=== PATIENT | female | born 1955 | race Caucasian/White ===

== ENCOUNTER 2020-01-17 18:49 | Outpatient (CLI) | payer MEDICARE, OTHER, SELFPAY ==
--- NOTE | ~2020-01-17 | XR_ITS ---
EXAMINATION: XR shoulder LT min 2V, XR shoulder RT min 2V DATE: 01/17/2020 19:17 INDICATION: Bilateral shoulder pain TECHNIQUE: 1. AP internally and externally rotated, AP oblique externally rotated and axillary views of the left shoulder were obtained. 2. AP internally and externally rotated, AP oblique externally rotated and axillary views of the righ t shoulder were obtained. COMPARISON: None FINDINGS: Normal alignment at both shoulders. No fracture. Bilateral mild glenohumeral and acromioclavicular os teoarthritis. Lower cervical facet osteoarthritis, severe on the left and mild to moderate on the rig ht. Visualized portions of the lungs are clear. 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 Reviewed, dictated and finalized at location A. IMPRESSION: Mild polyarticular osteoarthritis at the bilateral glenohumeral and acromioclav icular joints.
== END 2020-01-17 18:50 | disposition home or self-care (01) ==
PROVIDERS: PCP Family Medicine; Visit Provider Physician Assistant
DX: M19.011 Primary osteoarthritis, right shoulder (principal); M19.012 Primary osteoarthritis, left shoulder
CPT/HCPCS: 73030

== ENCOUNTER → 2020-06-11 11:43 | Outpatient (CLI) | payer MEDICARE, OTHER, SELFPAY ==
--- NOTE | ~2020-06-11 | MM_ITS ---
EXAMINATION: MM screening [facility] BI w mikel HISTORY: Screening mammogram TECHNIQUE: Craniocaudal and mediolateral oblique 3-D tomosynthesis images were obtained and synthetic 2-D images were generated. CAD analysis was submitted and interpreted. COMPARISON: 04/11/2019, 04/07/2018, 01/20/2017 BREAST PARENCHYMAL COMPOSITION: There are scattered areas of fibroglandular density. FINDINGS: There is no evidence of suspicious mass, calcification, or architectural distortion to sugg est malignancy in either breast. There has been no suspicious interval change. IMPRESSION: 1. No mammographic evidence of malignancy. 2. Recommend routine screening mammography in one year. BI-RADS Category 1: Negative Reviewed, dictated and finalized at location A. RINARIAN ASSISTANT
== END ==
PROVIDERS: PCP Family Medicine; Visit Provider Student in an Organized Health Care Education/Training Program
DX: Z12.31 Encounter for screening mammogram for malignant neoplasm of breast (principal)
CPT/HCPCS: 77063; 77067

== ENCOUNTER → 2021-06-05 13:26 | Outpatient (CLI) | payer MEDICARE, OTHER, SELFPAY ==
--- NOTE | ~2021-06-05 | DEXA_ITS ---
Bone Density Report Name: Latricia Medellin Age: 65 Sex: Female Ethnicity: White Date of : 1955 Indication: osteopenia; parental hip fracture; postmenopausal Referring Provider: ARACELISJUNE Study: Bone densitometry was performed. Exam Date: June 05, 2021 Accession number: [id number] Bone Density: Region BMD T-score Z-score Classification AP Spine (L1-L4) 1.006 -0.4 1.5 Normal Femoral Neck (Left) 0.624 -2.0 -0.4 Osteopenia Total Hip (Left) 0.738 -1.7 -0.4 Osteopenia Femoral Neck (Right) 0.583 -2.4 -0.8 Osteopenia Total Hip (Right) 0.708 -1.9 -0.6 Osteopenia Total Hip Mean 0.723 -1.8 -0.5 Osteopenia World Health Organization criteria for BMD impression classify patients as: Normal (T-score at or above -1.0), Osteopenia (T-score between -1.0 and -2.5), or Osteoporosis (T-score at or below -2.5). 10-year Fracture Risk(1): Major Osteoporotic Fracture 20% Hip Fracture 3.2% Reported Risk Factors: [place] (), Neck BMD=0.583, BMI=22.1, parental fracture (1) FRAX(R) Version 3.08. Fracture probability calculated for an untreated patient. Fracture probability may be lower if the patient has received treatment. Previous Exams: Region Exam Age BMD T-score BMD Change BMD Change Date g/cm2 vs Baseline vs Previous AP Spine(L1-L4) 06/05/2021 65 1.006 -0.4 0.045* 0.008 04/11/2019 63 0.999 -0.4 0.037* -0.011 01/20/2017 61 1.010 -0.3 0.048* 0.028* 01/15/2015 59 0.982 -0.6 0.020 -0.013 09/14/2012 56 0.994 -0.5 0.033* 0.002 09/13/2010 54 0.992 -0.5 0.031* -0.010 08/28/2008 52 1.003 -0.4 0.041* 0.041* 07/29/2006 50 0.962 -0.8 Total Hip(Left) 06/05/2021 65 0.738 -1.7 0.012 -0.025 04/11/2019 63 0.763 -1.5 0.037* 0.005 01/20/2017 61 0.758 -1.5 0.032* -0.022 01/15/2015 59 0.780 -1.3 0.054* -0.032* 09/14/2012 56 0.812 -1.1 0.085* 0.056* 09/13/2010 54 0.756 -1.5 0.029* 0.005 08/28/2008 52 0.750 -1.6 0.024 0.024 07/29/2006 50 0.726 -1.8 Total Hip(Right) 06/05/2021 65 0.708 -1.9 -0.005 -0.006 04/11/2019 63 0.714 -1.9 0.001 -0.011 01/20/2017 61 0.725 -1.8 0.011 -0.029* 01/15/2015 59 0.754 -1.5 0.040* -0.005 09/14/2012 56 0.759 -1.5 0.045* 0.002 09/13/2010 54 0.757 -1.5 0.043* 0.009
== END ==
PROVIDERS: PCP Internal Medicine; Visit Provider Internal Medicine
DX: Z78.0 Asymptomatic menopausal state (principal); M85.852 Other specified disorders of bone density and structure, left thigh; M85.851 Other specified disorders of bone density and structure, right thigh
CPT/HCPCS: 77080

== ENCOUNTER → 2022-06-30 13:54 | Outpatient (CLI) | payer MEDICARE, SELFPAY ==
--- NOTE | ~2022-06-30 | MM_ITS ---
EXAMINATION: MM screening [facility] BI w mikel HISTORY: Screening mammogram TECHNIQUE: Craniocaudal and mediolateral oblique 3-D tomosynthesis images were obtained and synthetic 2-D images were generated. CAD analysis was submitted and interpreted. COMPARISON: 06/11/2020, 04/11/2019, 04/07/2018 BREAST PARENCHYMAL COMPOSITION: The breasts are heterogeneously dense, which may obscure small masses . FINDINGS: No suspicious mass, calcification, or architectural distortion are identified in either jess ast to suggest malignancy. There has been no suspicious interval change. IMPRESSION: 1. No mammographic evidence of malignancy. 2. Recommend routine screening mammography in one year. BI-RADS Category 1: Negative Reviewed, dictated and finalized at location A. URING MACHINE OPERATOR
== END ==
PROVIDERS: PCP Internal Medicine; Visit Provider Internal Medicine
DX: Z12.31 Encounter for screening mammogram for malignant neoplasm of breast (principal)
CPT/HCPCS: 77063; 77067

== ENCOUNTER → 2023-04-02 15:15 | Outpatient (CLI) | payer MEDICARE, SELFPAY ==
--- NOTE | ~2023-04-02 | XR_ITS ---
EXAMINATION: XR cervical spine 4-5V DATE: 04/02/2023 15:39 INDICATION: Neck pain. TECHNIQUE: 4 views of cervical spine were obtained. COMPARISON: Cervical spine radiograph 01/04/2014 FINDINGS: There is 7 degrees levocurvature of cervical spine. Vertebral body heights are normal. Ther e is severely decreased disc height at C6-C7. There is multilevel facet joint osteoarthritis, severe on the left at C3-C4, C4-C5, and C5-C6 and severe bilaterally at C6-C7 and C7-T1. There is multilevel uncovertebral joint osteoarthritis, severe bilaterally at C5-C6 and C6-C7. There is mild central can al stenosis at C5-C6 and C6-C7. No prevertebral soft tissue swelling. IMPRESSION: 1. Severe cervical spondylosis. Reviewed, dictated and finalized at location E.
== END ==
PROVIDERS: PCP Internal Medicine; Visit Provider Internal Medicine
DX: M47.816 Spondylosis without myelopathy or radiculopathy, lumbar region (principal)
CPT/HCPCS: 72050

== ENCOUNTER 2023-12-08 13:15 | Outpatient (CLI) | payer MEDICARE, SELFPAY ==
--- NOTE | ~2023-12-08 | DEXA_ITS ---
Bone Density Report Name: JOSE VILLEDA Age: 68 Sex: Female Ethnicity: Sabiha Date of : 1955 Indication: osteopenia; monitoring treatment; parental hip fracture; postmenopausal Referring Provider: JUNE HSU Study: Bone densitometry was performed. Exam Date: December 08, 2023 Accession number: [id number] Bone Density: Region BMD T-score Z-score Classification AP Spine (L1-L4) 0.993 -0.5 1.6 Normal Femoral Neck (Left) 0.574 -2.5 -0.7 Osteoporosis Total Hip (Left) 0.710 -1.9 -0.5 Osteopenia Femoral Neck (Right) 0.577 -2.4 -0.7 Osteopenia Total Hip (Right) 0.717 -1.8 -0.4 Osteopenia Total Hip Mean 0.714 -1.9 -0.5 Osteopenia World Health Organization criteria for BMD impression classify patients as: Normal (T-score at or above -1.0), Osteopenia (T-score between -1.0 and -2.5), or Osteoporosis (T-score at or below -2.5). 10-year Fracture Risk: FRAX not reported because: Some T-score for Spine Total or Hip Total or Femoral Neck at or below -2.5 Treated for osteoporosis Previous Exams: Region Exam Age BMD T-score BMD Change BMD Change Date g/cm2 vs Baseline vs Previous AP Spine(L1-L4) 12/08/2023 68 0.993 -0.5 0.032* -0.013 06/05/2021 65 1.006 -0.4 0.045* 0.008 04/11/2019 63 0.999 -0.4 0.037* -0.011 01/20/2017 61 1.010 -0.3 0.048* 0.028* 01/15/2015 59 0.982 -0.6 0.020 -0.013 09/14/2012 56 0.994 -0.5 0.033* 0.002 09/13/2010 54 0.992 -0.5 0.031* -0.010 08/28/2008 52 1.003 -0.4 0.041* 0.041* 07/29/2006 50 0.962 -0.8 Total Hip(Left) 12/08/2023 68 0.710 -1.9 -0.016 -0.028* 06/05/2021 65 0.738 -1.7 0.012 -0.025 04/11/2019 63 0.763 -1.5 0.037* 0.005 01/20/2017 61 0.758 -1.5 0.032* -0.022 01/15/2015 59 0.780 -1.3 0.054* -0.032* 09/14/2012 56 0.812 -1.1 0.085* 0.056* 09/13/2010 54 0.756 -1.5 0.029* 0.005 08/28/2008 52 0.750 -1.6 0.024 0.024 07/29/2006 50 0.726 -1.8 Total Hip(Right) 12/08/2023 68 0.717 -1.8 0.004 0.009 06/05/2021 65 0.708 -1.9 -0.005 -0.006 04/11/2019 63 0.714 -1.9 0.001 -0.011 01/20/2017 61 0.725 -1.8 0.011 -0.029* 01/15/2015 59 0.754 -1.5 0.040* -0.005 09/14/2012 56 0.759 -1.5 0.045* 0.002 09/13/2010 54 0.757 -1.5 0.043
--- NOTE | ~2023-12-08 | MM_ITS ---
EXAMINATION: MM screening [facility] BI w mikel HISTORY: Screening mammogram TECHNIQUE: Craniocaudal and mediolateral oblique 3-D tomosynthesis images were obtained and synthetic 2-D images were generated. CAD analysis was submitted and interpreted. COMPARISON: 06/30/2022, 06/11/2020 bilateral screening mammogram examinations BREAST PARENCHYMAL COMPOSITION: There are scattered areas of fibroglandular density. FINDINGS: There is no evidence of suspicious mass, calcification, or architectural distortion to sugg est malignancy in either breast. There has been no suspicious interval change. IMPRESSION: 1. No mammographic evidence of malignancy. 2. Recommend routine screening mammography in one year. BI-RADS Category 1: Negative Reviewed, dictated and finalized at location B.
== END 2023-12-08 13:16 ==
PROVIDERS: PCP Internal Medicine; Visit Provider Internal Medicine
DX: Z12.31 Encounter for screening mammogram for malignant neoplasm of breast (principal); M85.88 Other specified disorders of bone density and structure, other site
CPT/HCPCS: 77063; 77067; 77080

== ENCOUNTER 2024-11-11 08:45 | Outpatient (CLI) | payer MEDICARE, SELFPAY ==
--- OUTSIDE RECORDS SUMMARY | 2024-11-11 08:57 | XMS_ITS | Referral Summary ---
Author Organization [facility] Address [address] [place] [phone] Care Team Providers Care Reproductive Endocrinologist Name Role Phone Elizabeth Landis MD Primary Care Provider [phone] Allergies No known active allergies Medications glucosamine-jade droitin 500-400 mg tablet Take by mouth daily Active multivitamin-iro n-folic acid 18-400 mg-mcg tablet Take by mouth daily Active fish oil-dha-epa 1,200-144-216 mg capsule Take by mouth Active Active Problems No known active problems Immunizations Immunization Administration Dates Next Due Influenza, Quadrivalent, Hig h Dose, Preservative Free, Intrr 06/19/2020 Influenza, Quadrivalent, Rec ombinant, Egg Free, Preservative Free, Intramuscular 05/30/2019 Influenza, Quadrivalent, Spl it, Preservative Free, Intramuscular 06/16/2018,08/24/2017 Pneumococcal Conjugate PCV 13 11/28/2020 Pneumococcal Conjugate Pcv20 11/12/2021 ZOSTER LIVE 12/10/2014 ZOSTER Recombinant 07/05/2021,12/17/2020 Social History Tobacco Use Types Packs/Day Years Used Date Smoking Tobacco: Former Tobacco Cessation:Counseling Given: Not Answered Personal Safety Answer Date Recorded Getting School Help Needed Not on file 08/05 Comments Unknown Sex and Gender Information Value Date Recorded Sex Assigned at Not on file Legal Sex Female 10:34 AM THERAPY ASSISTANT Gender Identity Female 03/14/2022 8:32 AM CDT Sexual Orientation Not on file Last Filed Vital Signs Vital Sign Reading Time Taken Comments Blood Pressure 119/74 03/14/2022 8:42 AM CDT Pulse 77 03/14/2022 8:42 AM CDT Temperature 36.9 C (98.5 F) 03/14/2022 8:42 AM CDT Respiratory Rate - - Oxygen Saturation 98% 03/14/2022 8:42 AM CDT Inhaled Oxygen Concentration - - Weight 57.2 kg (126 lb) 03/14/2022 8:42 AM CDT Height 160 cm (5' 3 ) 03/14/2022 8:42 AM CDT Body Mass Index 22.32 03/14/2022 8:42 AM CDT Plan of Treatment Not on file Insurance [facility] Care Teams Reproductive Endocrinologist Relationship Specialty Start Date End Date Elizabeth Landis MD [employer] [place] [id number] PCP - General Internal Medicine 06/11/21
--- OUTSIDE RECORDS SUMMARY | 2024-11-11 08:57 | XMS_ITS | Clinical Summary ---
Author Organization [facility] Address [address] [place] [id number] Care Team Providers Care Cook Ship Name Role Phone Elizabeth Landis MD Primary Care Provider [phone] Allergies No known active allergies Medications glucosamine-jade [...] 11/12/2021 ZOSTER LIVE 12/10/2014 ZOSTER Recombinant 07/05/2021,12/17/2020 Surgical History Surgery Date Site/Laterality Comments BLEPHAROPTOSIS REPAIR Bilateral OTHER SURGICAL HISTORY Left LEFT UPPER EYELID PTOSIS REVISION Medical History Medical History Date Comments Hepatitis C Arthritis Ptosis Family History Medical History Relation Name Comments Blindness Father Diabetes Father Hypertension Mother Relation Name Status Comments Father Mother Social History Tobacco Use Types Packs/Day Years Used Date Smoking Tobacco: Former Tobacco Cessation:Counseling Given: Not Answered Personal Safety Answer Date Recorded Getting School Help Needed Not on file 08/05 Comments Unknown Sex and Gender Information Value Date Recorded Sex Assigned at Not on file Legal Sex Female 10:34 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 Gender Identity Female 03/14/2022 8:32 AM CDT Sexual Orientation Not on file Obstetrics History Last Filed Vital Signs Vital Sign Reading [...] 03/14/2022 8:42 AM CDT Plan of Treatment Health Maintenance Due Date Last Done Comments Breast Cancer Screening-Mammogram 1955 Colon Cancer Screening-Colonoscopy 1955 Depression Screening 1955 Fall Risk Assessment 1955 Osteoporosis Screening-Bone Density Scan 1955 DTaP/Tdap/Td Vaccine (1 - Tdap) 1965 Hepatitis B Screening 1972 Well Visit 65+ 11/07/2019 Covid-19 Vaccine (5 - 2023-2 5 season) 2024 12/26/2021, 07/21/2021, 10/23/2020, Additional history exists Influenza Vaccine (Season Ended) 2025 06/19/2020, 05/30/2019, 06/16/2018, Additional history exists Hepatitis C Screening Completed 06/11/2021 Zoster Vaccine Completed 07/05/2021, 12/01, 12/10/2014 Pneumococcal vaccine 65+ Completed 11/12/2021, 11/02 Insurance AETNA MEDICARE AET[employer] MCR ADV REF Care Teams Cook Ship Relationship Specialty Start Date End Date Elizabeth Landis MD [employer] [place] [id number] PCP - General Internal Medicine 06/11/21
--- OUTSIDE RECORDS SUMMARY | 2024-11-11 08:57 | XMS_ITS | Clinical Summary ---
Author Organization [facility] Address [address] [place] [phone] Phone Care Team Providers Care Steel Die Press Set Up Operator Name Role Phone Ankit Walls MD Primary Care Provider [phone] Social History Tobacco Use Types Packs/Day Years Used Date Smoking Tobacco: Never Assessed Comments Unknown Sex and Gender Information Value Date Recorded Sex Assigned at Not on file Legal Sex Female 11:44 AM CHOCOLATE COATER Gender Identity Not on file Sexual Orientation Not on file Plan of Treatment Health Maintenance Due Date Last Done Comments DEXA Bone Density 1955 Hepatitis C Virus (HCV) Screening 1955 TdaP Immunization 1955 Colonoscopy 11/07/1999 Colorectal Cancer Screening 11/07/1999 Cologuard 2004 Immunochemical Fecal Occult Blood 2004 Mammogram 2004 Pneumococcal Immunization (5 0+ years) (1 of 1 - PCV) 2004 Zoster Immunization (1 of 2) 2004 Influenza Immunization (#1) 2024 SARS-COV-2 Immunization ( season) 2024 Respiratory Syncytial Virus (RSV) Immunization (Adult) (1 - 1-dose 75+ series) 2029 Hepatitis B Immunization Aged Out No longer eligible based on patient's age to complete this topic Meningococcal Immunization (ACWY) Aged Out No longer eligible based on patient's age to complete this topic Rotavirus Immunization Aged Out No lo nger eligible based on patient's age to complete this topic Insurance [facility] OAP Care Teams Steel Die Press Set Up Operator Relationship Specialty Start Date End Date Ankit Walls MD [address] [place] [address] PCP - General Internal Medicine 08/06/18
--- OUTSIDE RECORDS SUMMARY | 2024-11-11 08:57 | XMS_ITS | Clinical Summary ---
Author Organization [facility] Address [address] [place] [address] Care Team Providers Care Automation Technologist Name Role Phone Ruth Vasquez DO Primary Care Provider [phone] [facility] [employer],non-owned Affiliates and Associated Physician Practices is amultiple site organization consisting of ambulatory clinics and hospital sitesin [place], [place], [place] and [place]. This disclosure is being madepursuant to the Care Everywhere program and may not contain all information available regarding this patient. Last updated 18.[facility] [employer] Allergies No known active allergies Medications * Be aware that medications may not be up to date on this document. Alwaysverify current medications with the patient. Medication Sig Dispensed Refills Start Date End Date Status Multiple Vitamin (MULTIVITAMIN ADULT PO) Take by mouth once daily Active GLUCOSAMINE CHONDROITIN COMPLX PO Take by mouth once daily Active Selma-3 Fatty Acids (ODORLESS COATED FISH OIL PO) Take by mouth once daily Active Calcium-Vitamin D-Vitamin K (VIACTIV CALCIUM PLUS D PO) Take by mouth once daily Active Vitamin D-Vitamin K (K2 PLUS D3 PO) Take by mouth once daily Active Active Problems Problem Noted Date Diagnosed Date Ptosis of right eyelid 08/07/2022 Osteopenia 03/24/2022 Elevated liver enzymes 03/24/2022 Overview (09/15/2022): 2021 without identifiable cause, HCV RNA negative Chronic hepatitis C without hepatic coma 013 Overview (03/24/2022): SVR (cured) with solvadi and olysio in 201210/03/21 Fibroscan CAP 232, LSM 3.7 kPa Encounters Date Type Department Care Team Description 11/11/2024 Orders Only [facility] - [address] [place] [phone] Jareth Soto i, MD Chronic hepatitis C without hepatic coma (HCC) 11/08/2024 Telephone [facility] - [address] [facility], [place] [address] Jareth Soto i, MD LABS ONLY from Last 3 Months Immunizations Name Administration Dates Next Due INFLUENZA VACCINE, QUADR. (F LUZONE; FLULAVAL; FLUARIX; AFLURIA QUADRIVALENT; 6MO+), 0.5 ML (IIV4) 06/16/2018 Social History Tobacco Use Types Packs/Day Years Used Date Smoking Tobacco: Former Smokeless Tobacco: Never Tobacco Cessation:Counseling Given: Not Answered Alcohol Use Standard Drinks/Week Comments Yes 0 (1 standard drink = 0.6 oz pur e alcohol) 4-5 glasses of wine per week AUDIT-C Answer Date Recorded Q1: How often do you have a drink containing alcohol? 4 or more times a week 01/09/2023 Q2: How many drinks containi ng alcohol do you have on a typical day when you are drinking? 3 or 4 Q3: How often do you have si x or more drinks on one occasion? Never 01/09/2023 Sex and Gender Information Value Date Recorded Sex Assigned at Female 03/25/2022 8:30 AM CDT Gender Identity Female 03/25/2022 8:30 AM CDT Sexual Orientation Not on file Last Filed Vital Signs Vital Sign Reading Time Taken Comments Blood Pressure 143/76 06/08/2023 12:49 PM FILM LIBRARIAN Pulse 59 06/08/2023 12:49 PM FILM LIBRARIAN Temperature 36.4 C (97.5 F) 06/08/2023 12:40 PM FILM LIBRARIAN Respiratory Rate 16 06/08/2023 12:49 PM FILM LIBRARIAN Oxygen Saturation 99% 06/08/2023 12:49 PM FILM LIBRARIAN Inhaled Oxygen Concentration - - Weight 55.3 kg (122 lb) 06/08/2023 10:45 AM FILM LIBRARIAN Height 160 cm (5' 3 ) 06/08/2023 10:45 AM FILM LIBRARIAN Body Mass Index 21.61 06/08/2023 10:45 AM FILM LIBRARIAN Plan of Treatment Upcoming Encounters Date Type Department Care Team (Late st Contact Info) Description 01/16/2025 8:00 AM CDT Office Visit [facility] [address] [place] [address], [place] [address] Jareth Calle MD [address] [place] [address] [place] [address] Health Maintenance Due Date Last Done Comments BONE DENSITY TESTING 1955 COLOGUARD (AGES 45-75) - COLON CA SCREENING 1955 COLON MONITORING 1955 COLONOSCOPY - COLON CA SCREENING 1954 CT COLONOGRAPHY - COLON CA SCREENING 1955 Colorectal Cancer Screening 1955 FIT - COLON CA SCREENING 1955 FLEX SIG - COLON CA SCREENING 1955 LIPID TESTING 1955 MAMMOGRAM 1954 DTAP/TDAP/TD VACCINES (1 - Tdap) 1973 PNEUMOCOCCAL VACCINE 50+ (1 of 2 - PCV) 1973 ZOSTER VACCINE (1 of 2) 2004 HEPATITIS B VACCINE (1 of 3 - Risk 3-dose series) 2014 Respiratory Syncytial Virus (RSV) Vaccine Pt: or over 60 yrs (1 - Risk 60-74 years 1-dose series) 2014 COVID-19 VACCINE ( - season) 2024 DEPRESSION SCREENING 08/03/2024 MEDICARE AWV CALENDAR YEAR 2024 INFLUENZA VACCINE (Season Ended) 2025 06/18/2020, 05/30/2019, 06/16/2018, Additional history exists HEPATITIS C SCREENING Completed 11/11/2024 , 09/15/2022, 03/25/2022, Additional history exists HIB VACCINE Aged Out No longer eligi ble based on patient's age to complete this topic HPV VACCINE Aged Out No longer eligi ble based on patient's age to complete this topic MENINGOCOCCAL (Group B) VACCINE SHARED DECISION-MAKING Aged Out No longer eligible based on patient's age to complete this topic MENINGOCOCCAL GROUPS A/C/Y/W VACCINE Aged Out No longer eligible based on patient's age to complete this topic Goals Goal Patient Goal Type Associated Problems Recent Progress Patient-Stated? Author Medication Management General On track( 023 1:48 PM FILM LIBRARIAN) Bella Wallace, RN Note: Expected end date: ONGOING Interventions: Take all medications as prescribed Procedures Procedure Name Priority Date/Time Associated Diagnosis Comments HEPATITIS C GENOTYPE Routine 08/27/2021 1:25 PM FILM LIBRARIAN Chronic hepatitis C without hepatic coma from Last 3 Months or Most Recently Relevant to Health Maintenance Results * HEPATITIS C GENOTYPE (08/27/2021 1:25 PM FILM LIBRARIAN) Hepatitis C Virus Genotype LIPA NOT DETECTED [facility] Comment: Genotype not detected due to low or no viral load, mutations in viral genome at assay priming sites, presence of inhibitory substance, or other assay related factors. Viral load of >=300 IU/mL is required for testing. If this patient has a known concurrent viral load >=300 IU/mL contact client services for verification. The method used in this test is RT-PCR and reverse hybridization (Line Probe) of the 5' UTR and core region of the HCV genome. The analytical performance characteristics of this assay have been determined by [employer]. The modifications have not been cleared or approved by the FDA. This assay has been validated pursuant to the CLIA regulations and is used for clinical purposes. For additional information, please refer to http://education.[employer] /faq/HCVGenotyping (This link id being provided for informational/ educational purposes only.) Test Performed at: [facility] [address] [place] [address] MICHELLE VALDEZ MD,PHD,MARY Blood BLOOD SPECIMEN / Unknown 08/27/2021 1:25 PM FILM LIBRARIAN 08/27/2021 1:26 PM FILM LIBRARIAN Monse Ernandez FRESH [employer]ODS CLERK-DENTAL DETAIL REPRESENTATIVE LAB - [facility] ORDERABLES [facility] [address] [place] [address] from Last 3 Months or Most Recently Relevant to Health Maintenance Care Teams Automation Technologist Relationship Specialty Start Date End Date Ruth Vasquez DO [address] [place] [address] PCP - General Family Medicine 11/08/24
--- OUTSIDE RECORDS SUMMARY | 2024-11-11 08:57 | XMS_ITS | Encounter Summary ---
Author Organization [facility] Health Address [address] [facility] [place] [address] Care Team Providers Care Pediatric Medical Assistant Name Role Phone Ruth Vasquez DO Primary Care Provider [phone] Encounter Details Date Type Department Care Team (Late st Contact Info) Description 11/11/2024 Orders Only [facility] - [place] [address] [facility], [place] [address] Jareth Calle MD [address] [place] [address] [place] [address] Chronic hepatitis C without hepatic coma (HCC) Social History Tobacco Use Types Packs/Day Years Used Date Smoking Tobacco: Former Smokeless Tobacco: Never Alcohol Use Standard Drinks/Week Comments Yes 0 [...] AM CDT Sexual Orientation Not on file documented as of this encounter Plan of Treatment Upcoming Encounters Date Type Department Care Team (Late st Contact Info) Description 01/16/2025 8:00 AM CDT Office Visit [facility] - [place] [address] [facility] [place] [address] Jareth Calle MD [address] [place] [address] [place] [address] Scheduled Orders Name Type Priority Associated Diagnoses Orde r Schedule COMPREHENSIVE METABOLIC PANEL Lab Routine Chronic hepatitis C without hepatic coma (HCC) Ordered: 11/11/2024 CBC WITH DIFFERENTIAL Lab Routine Chronic hepatitis C without hepatic coma (HCC) Ordered: 11/11/2024 PT-INR Lab STAT Chronic hepatitis C without hepatic coma (HCC) Ordered: 11/11/2024 documented as of this encounter Goals Goal Patient Goal Type Associated Problems Recent Progress Patient-Stated? Author Medication Management General On track( 023 1:48 PM PROPERTY MANAGEMENT SPECIALIST) Bella Wallace, RN Note: Expected end date: ONGOING Interventions: Take all medications as prescribed documented as of this encounter Visit Diagnoses Diagnosis Chronic hepatitis C without hepatic coma (HCC)- Primary documented in this encounter Care Teams Pediatric Medical Assistant Relationship Specialty Start Date End Date Ruth Vasquez DO [address] [place] [address] PCP - General Family Medicine 11/08/24 documented as of this encounter
[2024-11-11 18:14] LABS: Hematocrit 42.3 % (37.0-47.0); Hemoglobin 13.7 g/dL (12.0-15.0); Mean Corpuscular HGB Conc 32.4 g/dl (32-36); Mean Corpuscular Hemoglobin 31.6 pg (26-34); Mean Corpuscular Volume 97.5 fl (80-100); Mean Platelet Volume 10.5 fl (7.4-10.4); Platelet Count Result 197 k/mm3 (150-375); Red Blood Count 4.34 M/mm3 (4.2-5.4); Red Cell Distribution Width 12.7 % (11.5-14.5); White Blood Count 5.3 K/mm3 (4.5-10.0)
[2024-11-11 18:29] LABS: Alanine Aminotransferase 16 U/L (6-35); Albumin Level 4.2 g/dL (3.5-5.1); Alkaline Phosphatase 57 U/L (38-126); Anion Gap 8 mmol/L (4-12); Aspartate Amino Transferase 28 U/L (14-36); Bilirubin,Total 0.6 mg/dL (0.2-1.3); Blood Urea Nitrogen 17 mg/dL (7-17); Calcium 9.1 mg/dL (8.4-10.2); Carbon Dioxide 28 mmol/L (22-30); Chloride 104 mmol/L (98-107); Cholesterol 149 mg/dL (0-200); Estimated Glomerular Filt Rate > 60; Glucose 91 mg/dL (65-110); HDL Direct 56 mg/dL; Potassium 4.4 mmol/L (3.4-5.0); Sodium 140 mmol/L (137-145); Triglycerides 52 mg/dL (<150)
[2024-11-11 18:42] LABS: LDL Cholesterol Direct 69 mg/dL
== END 2024-11-11 08:46 | disposition home or self-care (01) ==
LOC: ANHGOSHLAB 08:45
PROVIDERS: PCP Family Medicine; Visit Provider Family Medicine
DX: M85.80 Other specified disorders of bone density and structure, unspecified site (principal); G47.00 Insomnia, unspecified; Z13.220 Encounter for screening for lipoid disorders; Z79.899 Other long term (current) drug therapy
CPT/HCPCS: 36415; 80053; 80061; 84443; 85027

== ENCOUNTER 2024-12-08 13:39 | Outpatient (CLI) | payer MEDICARE, SELFPAY ==
--- OUTSIDE RECORDS SUMMARY | 2024-12-08 13:43 | XMS_ITS | Clinical Summary ---
Author Organization [facility] Address [address] [facility] [place] [address] Care Team Providers Care Summer Internship Name Role Phone Ruth Vasquez DO Primary Care Provider [phone] Source Comments [facility] Subject Company,non-owned Affiliates and Associated Physician Practices is amultiple site organization consisting of ambulatory clinics and hospital sitesin [place], [place], [place] and [place]. This disclosure is being madepursuant to the Care Everywhere program and may not contain all information available regarding this patient. Last updated 18.[facility] Subject Company Allergies No known active allergies Medications * Be aware that medications may not be up to date on this document. Alwaysverify current medications with the patient. Multiple Vitamin (MULTIVITAMIN ADULT PO) Take by mouth once daily Active GLUCOSAMINE CHONDROITIN COMPLX PO Take by mouth once daily Active [place]-3 Fatty Acids (ODORLESS COATED FISH OIL PO) [...] Department Care Team Description 11/11/2024 Orders Only [facility] - [address] [facility], [place] [phone] Jareth Soto i, MD Chronic hepatitis C without hepatic coma (HCC) 11/08/2024 Telephone [facility] - [address] [place] [phone] Jareth Soto i, MD LABS ONLY from Last 3 Months Immunizations Immunization Administration Dates Next Due INFLUENZA VACCINE, QUADR. [...] more drinks on one occasion? Never 01/09/2023 Comments Unknown Sex and Gender Information Value Date Recorded Sex Assigned at Female 03/25/2022 8:30 AM CDT Legal Sex Female 6:19 PM RUG CLEANING SUPERVISOR Gender Identity Female 03/25/2022 8:30 AM CDT Sexual Orientation Not on file Last Filed Vital Signs Vital Sign Reading Time Taken Comments Blood Pressure 143/76 06/08/2023 12:49 PM RUG CLEANING SUPERVISOR Pulse 59 06/08/2023 12:49 PM RUG CLEANING SUPERVISOR Temperature 36.4 C (97.5 F) 06/08/2023 12:40 PM RUG CLEANING SUPERVISOR Respiratory Rate 16 06/08/2023 12:49 PM RUG CLEANING SUPERVISOR Oxygen Saturation 99% 06/08/2023 12:49 PM RUG CLEANING SUPERVISOR Inhaled Oxygen Concentration - - Weight 55.3 kg (122 lb) 06/08/2023 10:45 AM RUG CLEANING SUPERVISOR Height 160 cm (5' 3 ) 06/08/2023 10:45 AM RUG CLEANING SUPERVISOR Body Mass Index 21.61 06/08/2023 10:45 AM RUG CLEANING SUPERVISOR Plan of Treatment Upcoming Encounters Date Type Department Care Team (Late st Contact Info) Description 01/16/2025 8:00 AM CDT Office Visit [facility] [facility], [place] [address] Jareth Calle MD [address] [place] [address] [place] [address] Health Maintenance Due Date Last Done Comments [...] 60-74 years 1-dose series) 2014 COVID-19 VACCINE (1 - season) 2024 DEPRESSION SCREENING 08/03/2024 MEDICARE [...] Management General On track( 023 1:48 PM RUG CLEANING SUPERVISOR) Bella Wallace, MARLYN Note: Expected end date: ONGOING Interventions: Take all medications as prescribed Procedures Procedure Name Priority Date/Time Associated Diagnosis Comments HEPATITIS C GENOTYPE Routine 08/27/2021 1:25 PM RUG CLEANING SUPERVISOR Chronic hepatitis C without hepatic coma from Last 3 Months or Most Recently Relevant to Health Maintenance Results * HEPATITIS C GENOTYPE (08/27/2021 1:25 PM RUG CLEANING SUPERVISOR) Hepatitis C Virus Genotype LIPA NOT DETECTED [...] of this assay have been determined by [employer]. The modifications have not been cleared or approved by the FDA. This assay has been validated pursuant to the CLIA regulations and is used for clinical purposes. For additional information, please refer to http://education.Sonos.GetSnippy /faq/HCVGenotyping (This link id being provided for informational/ educational purposes only.) Test Performed at: [email or web address] [address] [place] [address] MICHELLE VALDEZ MD,PHD,MARY Blood BLOOD SPECIMEN / Unknown 08/27/2021 1:25 PM RUG CLEANING SUPERVISOR 08/27/2021 1:26 PM RUG CLEANING SUPERVISOR Monse Ernandez MUD ENGINEER-PLATE PRINTER LAB - CHEMISTRY ORDE ADE Final Result [facility] [id number] [place] [address] from Last 3 Months or Most Recently Relevant to Health Maintenance Insurance [employer] MEDICARE ADV [employer] Care Teams Summer Internship Relationship Specialty Start Date End Date Ruth Vasquez DO [address] [place] [address] PCP - General Family Medicine 11/08/24
--- OUTSIDE RECORDS SUMMARY | 2024-12-08 13:43 | XMS_ITS | Clinical Summary ---
Author Organization 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
--- OUTSIDE RECORDS SUMMARY | 2024-12-08 13:43 | XMS_ITS | Clinical Summary ---
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
--- OUTSIDE RECORDS SUMMARY | 2024-12-08 13:43 | XMS_ITS | Referral Summary ---
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
[2024-12-08 19:46] LABS: Basophils Percent Auto 0.3 % (0.2-1.2); Eosinophils Percent Auto 0.5 % (0-4.4); Hematocrit 39.9 % (37.0-47.0); Hemoglobin 12.9 g/dL (12.0-15.0); Immature Granulocyte Absolute 0.02 K/mm3 (0.00-0.031); Immature Granulocyte Percent A 0.3 % (0-0.5); Lymphocytes Absolute Auto 2.36 K/mm3 (0.9-3.2); Lymphocytes Percent Auto 35.9 % (18.3-44.2); Mean Corpuscular HGB Conc 32.3 g/dl (32-36); Mean Corpuscular Hemoglobin 31.3 pg (26-34); Mean Corpuscular Volume 96.8 fl (80-100); Mean Platelet Volume 10.6 fl (7.4-10.4); Monocytes Absolute Auto 0.6 K/mm3 (0.1-0.6); Monocytes Percent Auto 9.4 % (2.6-8.5); Neutrophils Absolute Auto 3.5 K/mm3 (1.3-6.7); Neutrophils Percent Auto 53.6 % (45.5-73.1); Platelet Count Result 192 k/mm3 (150-375); Red Blood Count 4.12 M/mm3 (4.2-5.4); Red Cell Distribution Width 12.6 % (11.5-14.5); White Blood Count 6.6 K/mm3 (4.5-10.0)
[2024-12-08 19:58] LABS: INR 0.9; Prothrombin Time 12.9 Seconds (11.1-14.7)
[2024-12-08 20:28] LABS: Alanine Aminotransferase 15 U/L (6-35); Albumin Level 4.3 g/dL (3.5-5.1); Alkaline Phosphatase 77 U/L (38-126); Anion Gap 7 mmol/L (4-12); Aspartate Amino Transferase 26 U/L (14-36); Bilirubin,Total 0.3 mg/dL (0.2-1.3); Blood Urea Nitrogen 23 mg/dL (7-17); Calcium 9.3 mg/dL (8.4-10.2); Carbon Dioxide 27 mmol/L (22-30); Chloride 106 mmol/L (98-107); Estimated Glomerular Filt Rate > 60; Glucose 110 mg/dL (65-110); Sodium 140 mmol/L (137-145)
== END 2024-12-08 13:40 | disposition home or self-care (01) ==
PROVIDERS: PCP Family Medicine
DX: B18.2 Chronic viral hepatitis C (principal)
CPT/HCPCS: 36415; 80053; 85025; 85610

== ENCOUNTER 2024-12-16 10:10 | Outpatient (CLI) | payer MEDICARE, SELFPAY ==
--- NOTE | ~2024-12-16 | MM_ITS ---
EXAMINATION: MM screening chelsie BI w mikel HISTORY: Screening TECHNIQUE: Craniocaudal and mediolateral oblique 3-D tomosynthesis images were obtained and synthetic 2-D images were generated. CAD analysis was submitted and interpreted. COMPARISON: Comparison to multiple prior studies sequentially, with oldest reviewed study dated 01/20. BREAST PARENCHYMAL COMPOSITION: Not dense: There are scattered areas of fibroglandular density. FINDINGS: There is no evidence of suspicious mass, calcification, or architectural distortion to sugg est malignancy in either breast. There has been no suspicious interval change. IMPRESSION: 1. No mammographic evidence of malignancy. 2. Recommend routine screening mammography in one year. BI-RADS Category 1: Negative Reviewed, dictated and finalized at location A.
== END 2024-12-16 10:11 | disposition home or self-care (01) ==
LOC: MICIMG 10:10
PROVIDERS: PCP Family Medicine; Visit Provider Family Medicine
DX: Z12.31 Encounter for screening mammogram for malignant neoplasm of breast (principal)
CPT/HCPCS: 77063; 77067

== ENCOUNTER 2025-05-12 15:30 | Outpatient (CLI) | payer MEDICARE, SELFPAY ==
[2025-05-12 19:20] LABS: Alanine Aminotransferase 15 U/L (6-35); Albumin Level 4.3 g/dL (3.5-5.1); Alkaline Phosphatase 79 U/L (38-126); Anion Gap 7 mmol/L (4-12); Aspartate Amino Transferase 31 U/L (14-36); Bilirubin,Total 0.3 mg/dL (0.2-1.3); Blood Urea Nitrogen 18 mg/dL (7-17); Calcium 9.5 mg/dL (8.4-10.2); Carbon Dioxide 29 mmol/L (22-30); Chloride 104 mmol/L (98-107); Estimated Glomerular Filt Rate > 60; Glucose 116 mg/dL (65-110); Potassium 3.9 mmol/L (3.4-5.0); Sodium 140 mmol/L (137-145); Total Protein 7.5 g/dL (6.3-8.2)
[2025-05-12 19:41] LABS: Hematocrit 39.3 % (37.0-47.0); Hemoglobin 13.0 g/dL (12.0-15.0); Immature Granulocyte Percent A 0.2 % (0-0.5); Lymphocytes Absolute Auto 2.61 K/mm3 (0.9-3.2); Mean Corpuscular HGB Conc 33.1 g/dl (32-36); Mean Corpuscular Hemoglobin 31.7 pg (26-34); Mean Corpuscular Volume 95.9 fl (80-100); Nucleated Red Blood Cells Absolute Auto 0.000 K/mm3 (0.0-0.012); Nucleated Red Blood Cells Perc 0.0 % (0.0-0.2); Platelet Count Result 196 k/mm3 (150-375); Red Blood Count 4.10 M/mm3 (4.2-5.4); White Blood Count 8.1 K/mm3 (4.5-10.0)
[2025-05-12 19:55] LABS: Thyroid Stimulating Hormone 1.630 uIU/mL (0.465-4.680)
[2025-05-15 11:43] LABS: Hemoglobin A1C 5.3 % (<5.7)
== END 2025-05-12 15:31 | disposition home or self-care (01) ==
LOC: ANHGOSHLAB 15:30
PROVIDERS: PCP Family Medicine; Visit Provider Family Medicine
DX: G47.00 Insomnia, unspecified (principal); Z79.899 Other long term (current) drug therapy
CPT/HCPCS: 36415; 80053; 83036; 84443; 85025